=== PATIENT | male | born 1985 | race Caucasian/White ===

== ENCOUNTER 2025-02-21 07:05 | Emergency (ER) | payer SELFPAY ==
--- OUTSIDE RECORDS SUMMARY | 2025-02-21 07:16 | XMS REPORT | Continuity of Care Document ---
Author Name Unknown Address [address] [facility] [place] [address] [facility] Address [address] [facility] [place] [address] Care Team Providers Care [employer] Tutor Name Role Phone BRENNAN LINCOLN Primary Care Physician Unavailab KATE Little Attending Clinician Unavailable KATE MARSHALL Attending Clinician Unavailable Kate Marshall MD Attending Clinician [phone] CARLI BECKETT Attending Clinician Unavailable Carli Beckett MD Attending Clinician [phone] Guy Rascon MD Attending Clinician [phone] GUY RASCON Attending Clinician Unavailable LAB90 Attending Clinician Unavailable CHIP SOLOMON Attending Clinician Unavailable KATE MARSHALL Admitting Clinician Unavailable GUY RASCON Admitting Clinician Unavailable Payers Payer Name Policy Type Policy Number Effective Date Expirati on Date Source BCBS 2 [id number] 2022 00:00:00 Allergies, Adverse Reactions, Alerts Allergy Name Allergy Type Status Severity Reaction(s) Onset Date Inactive Date Treating Clinician Comments Source NO KNOWN ALLERGIE S Drug Class Active Univers [facility] Social History Social Habit Start Date Stop Date Quantity Comments Source Sexual orientation U [facility] History SDOH Alcohol Frequency Laurie Georgey bold - External History SDOH Alcohol Std Drinks Laurie Se ybold - External History SDOH Alcohol Binge Laurie Ureña - External Alcohol intake 2022-09-15 00:00:00 2022-09-15 00:00:00 Current drinker of alcohol (finding) Laurie Ureña - External Alcohol Comment 2022-09-15 00:00:00 2022-09-15 00:00:00 social Laurie Ureña - External Sex assigned at 1985 00:00:00 1985 00:00:00 [facility] Smoking Status Start Date Stop Date Source Tobacco smoking consumption unknown [facility] Never smoked tobacco Laurie Ureña - External Medications Ordered Medication Name Filled Medication Name Start Date Stop Date Current Medication? Ordering Clinician Indication Dosage Frequency Signature (SIG) Comments Components Source iopamidol (ISOVUE 370-500 mL) injection 90 mL 2023-07 05:30: 00 04-24 05:30 :00 No [id number] 90mL 90 mL, Intravenou s, ONCE, 1 dose, On Mon04/24/24 at 0030, Routine [facility] proMETHazin e (PHENERGAN) 25 mg in NS 50 mL IV piggyback (CNR) 2023-07 03:15: 00 04-24 03:44 :00 No 25mg 25 mg, IV Piggyback, at 200 mL/hr Administer over 15 Minutes, ONCE, 1 dose, On Mon04/23/24 at 2215, MICHELINE [facility] morpHINE (4 mg/mL) injection 4 mg 2023-07 03:15: 00 04-24 03:20 :00 No 4mg 4 mg, Slow IV Push, ONCE, 1 dose, On Mon04/23/24 at 2215, STAT [facility] ondansetron (ZOFRAN (PF)) injection 4 mg 11-10 22:00: 00 11-10 21:40 :00 No 4mg 4 mg, Slow IV Push, ONCE, 1 dose, On 11/11/23 at 1700, [facility] NaCl 0.9% (NS) bolus infusion 1,000 mL 2024-0 4-27 21:45: 00 11-11 00:24 :00 No 1000mL at 999 mL/hr, 1,000 mL, IV Piggyback, ONCE, 1 dose, On 11/11/23 at 1645, STAT [facility] Lactobac2-B ifido1-Stre p therm. 112.5 billion cell capsule 11-10 00:00: 00 Yes [id number] 1{capsu le} Take 1 capsule by mouth in the morning and 1 capsule in the evening. [facility] diphenoxyla te-atropine (LOMOTIL) 2.5-0.025 mg tablet 1 tablet 11-03 17:15: 00 11-03 17:00 :00 No 1{tbl} 1 tablet, Oral, ONCE NOW, 1 dose, On 11/04/23 at 1215, MICHELINE [facility] iohexol (OMNIPAQUE 350 BULK-100 mL) injection 100 mL 11-03 16:00: 00 11-03 15:48 :00 No [id number] 100mL 100 mL, Intravenou s, ONCE, 1 dose, On 11/04/23 at 1100, Routine [facility] diphenoxyla te-atropine 2.5-0.025 mg tablet 11-03 00:00: 00 Yes [id number] 1{tbl} Take 1 tablet by mouth every 6 (six) hours as needed (diarrhea) . [facility] proMETHazin e 25 mg tablet 11-03 00:00: 00 Yes [id number] 25mg Take 1 tablet by mouth every 6 (six) hours as needed for N/V unresponsi ve to Ondansetro n. [facility] ondansetron (ZOFRAN) 4 mg tablet 11-03 00:00: 00 Yes [id number] 4mg Take 1 tablet by mouth every 8 (eight) hours as needed for Nausea and Vomiting (N/V). [facility] metroNIDAZO LE 250 mg tablet 11-03 00:00: 00 11-11 04:59 :00 No [id number] 250mg Take 1 tablet by mouth every 8 (eight) hours for 7 days. [facility] ciprofloxac in HCl 500 mg tablet 11-03 00:00: 00 11-11 04:59 :00 No [id number] 500mg Take 1 tablet by mouth in the morning and 1 tablet in the evening. Do all this for 7 days. [facility] Sildenafil Citrate 50 MG oral Tablet 09-15 08:02: 46 Yes 50mg QD Take 50 mg by mouth daily as needed Laurie daniel Vital Signs Vital Name Observation Time Observation Value Comments S ourjaime Body temperature 2024-04-24 07:46:00 36.22 Karime [facility] Systolic blood pressure 2024-04-24 07:00:00 116 mm[Hg] [facility] Diastolic blood pressure 2024-04-24 07:00:00 78 mm[Hg] [facility] Respiratory rate 2024-04-24 07:00:00 18 /min [facility] Oxygen saturation in Arterial blood by Pulse oximetry 2024-04-24 06:00:00 94 /min [facility] Heart rate 2024-04-24 06:00:00 74 /min [facility] Body height 2024-04-24 02:47:00 175.3 cm [facility] Body weight 2024-04-24 02:47:00 129.275 kg [facility] BMI 2024-04-24 02:47:00 42.09 kg/m2 [facility] Systolic blood pressure 2023-11-11 23:30:00 120 mm[Hg] [facility] Diastolic blood pressure 2023-11-11 23:30:00 78 mm[Hg] [facility] Heart rate 2023-11-11 23:30:00 87 /[facility] Respiratory rate 2023-11-11 23:30:00 16 /min [facility] Oxygen saturation in Arterial blood by Pulse oximetry 2023-11-11 23:30:00 96 /min [facility] Body temperature 2023-11-11 20:46:00 37.11 Karime [facility] Body weight 2023-11-11 20:46:00 122.471 kg [facility] BMI 2023-11-11 20:46:00 39.87 kg/m2 [facility] Heart rate 2023-11-04 18:52:00 91 /min [facility] Respiratory rate 2023-11-04 18:52:00 18 /min [facility] Oxygen saturation in Arterial blood by Pulse oximetry 2023-11-04 18:52:00 98 /min [facility] Systolic blood pressure 2023-11-04 18:30:00 112 mm[Hg] [facility] Diastolic blood pressure 2023-11-04 18:30:00 58 mm[Hg] [facility] Body height 2023-11-04 12:42:51 175.3 cm [facility] Body weight 2023-11-04 12:42:51 127.007 kg [facility] BMI 2023-11-04 12:42:51 41.35 kg/m2 [facility] Body temperature 2023-11-04 12:40:00 37.56 Karime [facility] Diastolic blood pressure 2022-09-15 13:58:00 80 mm[Hg] Laurie Seybo ld - External Heart rate 2022-09-15 13:58:00 89 /min Kelse y Seybold - External Body temperature 2022-09-15 13:58:00 36.28 Karime Laurie Seybold - External Respiratory rate 2022-09-15 13:58:00 15 /min Laurie Seybold - External Body height 2022-09-15 13:58:00 175.3 cm Molly ey Seybold - External Body weight 2022-09-15 13:58:00 129.275 kg Molly ey Seybold - External BMI 2022-09-15 13:58:00 42.09 kg/m2 Molly ey Seybold - External Systolic blood pressure 2022-09-15 13:58:00 134 mm[Hg] Laurie Seybo ld - External Diastolic blood pressure 2022-09-15 13:58:00 80 mm[Hg] Laurie Seybo ld - External Heart rate 2022-09-15 13:58:00 89 /min Jose Luis Ureña - External Body temperature 2022-09-15 13:58:00 36.28 Karime Laurie Ureña - External Respiratory rate 2022-09-15 13:58:00 15 /min Laurie Ureña - External Body height 2022-09-15 13:58:00 175.3 cm Molly Ureña - External Body weight 2022-09-15 13:58:00 129.275 kg Molly Murguiaold - External BMI 2022-09-15 13:58:00 42.09 kg/m2 Molly elena Seybold - External Systolic blood pressure 2022-09-15 13:58:00 134 mm[Hg] Laurie Lester ld - External Procedures Procedure Date / Time Performed Performing Clinician Source CT ABDOMEN PELVIS W CONTRAST 2024-04-24 04:36:14 Kate Marshall [facility] LACTIC ACID WHOLE BLOOD 2024-04-24 03:54:00 Yudith Marshall [facility] LIPASE 2024-04-24 03:20:00 Kate Marshall [facility] COMP. METABOLIC PANEL ([id number]) 2024-04-24 03:20:00 Kate Marshall [facility] CBC WITH DIFF 2024-04-24 03:20:00 Kate Marshall [facility] PROTHROMBIN TIME / INR 2024-04-24 03:20:00 Marky Marshall [facility] URINALYSIS 2023-11-11 23:28:00 Carli Beckett [facility] LACTIC ACID WHOLE BLOOD 2023-11-11 21:38:00 Abiola Beckett [facility] COMP. METABOLIC PANEL ([id number]) 2023-11-11 21:36:00 Carli Beckett [facility] CBC WITH DIFF 2023-11-11 21:36:00 Carli Beckett [facility] CLOSTRIDIUM DIFFICILE TOXIN 2023-11-11 21:36:00 Carli Beckett [facility] EXTRA TUBE LT. BLUE 2023-11-11 21:36:00 Carli Beckett [facility] CT ABDOMEN PELVIS W CONTRAST 2023-11-04 15:50:00 Guy Rascon [facility] XR CHEST 2 VW 2023-11-04 15:01:00 Guy Rascon [facility] URINALYSIS 2023-11-04 13:31:00 Guy Rascon [facility] CLOSTRIDIUM DIFFICILE TOXIN 2023-11-04 13:31:00 Guy Rascon [facility] GIARDIA CRYPTOSPORIDIUM AG SCR 2023-11-04 13:31:00 Guy Rascon [facility] LIPASE 2023-11-04 13:17:00 Guy Rascon [facility] COMP. METABOLIC PANEL ([id number]) 2023-11-04 13:17:00 Guy Rascon [facility] CBC WITH DIFF 2023-11-04 13:17:00 Guy Rascon [facility] Encounters Start Date/Time End Date/Time Encounter Type Admission Type Attending [facility] Care Facility Care Department Encounter ID Source 2024-04-23 21:46:00 2024-04-24 02:50:00 Emergency X KATE MARSHALL WAKILI [facility] ERT [id number] [facility] 2024-04-23 21:46:00 2024-04-24 02:50:00 Emergency Kate Marshall S [facility] [id number] [facility] 2023-11-11 15:57:00 2023-11-11 19:47:00 Emergency X CARLI BECKETT [facility] ERT [id number] [facility] 2023-11-11 15:57:00 2023-11-11 19:47:00 Emergency Carli Beckett [facility] [id number] [id number] [id number] [facility] 2023-11-04 07:43:00 2023-11-04 14:31:00 Emergency Guy Rascon [facility] [id number] [id number] [id number] [id number] [facility] 2023-11-04 07:43:00 2023-11-04 14:31:00 Emergency X GUY RASCON [facility] ERT [id number] [facility] 2022-09-15 08:50:00 2022-09-15 08:50:00 Outpatient LAB90 LAURIE RODRIGUEZ [id number] Laurie arleen 2022-09-15 08:00:00 2022-09-15 08:00:00 Outpatient KORTNEYMaye CHIP LAURIE RODRIGUEZ [id number] Laurie Seghazalaelsie 2022-09-15 08:00:00 2022-09-15 08:00:00 Outpatient KORTNEYMaye CHIP RODRIGUEZ [id number] Laurie ghazalaelsie Results Test Description Test Time Test Comments Results Result Comments Source CT ABDOMEN PELVIS W CONTRAST 06:40:27 Ordering physician: KATE MARSHALL Indication: Nonlocalized abdominal pain, hernia COMPARISON: CT the abdomen and pelvis dated 11/04/2023 TECHNIQUE: Axial images of the abdomen and pelvis are performed followingadministration of intravenous contrast material. Images were reformatted inthe coronal and sagittal plane. CT scan was performed according to ALARA(as low as reasonably achievable) policy. FINDINGS: The lung bases are clear. The liver, gallbladder, spleen, adrenalglands and pancreas are within normal limits. The kidneys are normal inappearance bilaterally without hydronephrosis. No abdominal aortic aneurysmor dissection is appreciated. There is a midline ventral hernia in theabdomen containing only fat, but there is prominent stranding and a smallamount of fluid in the hernia sac (series 2, image 74). There is a smallumbilical hernia containing only fat at the time of the exam. There is no free fluid in the pelvis. There is no bowel obstruction,widespread diverticulosis or acute diverticulitis. The appendix isidentified and within normal limits. ?Bone windows through the abdomen andpelvis demonstrate no osseous destructive lesion. [facility] [id number] 03:59:36* Test Item Value Reference Range Interpretation Comme nts LACTIC ACID (test code = 6960869527) 1.11 mmol/L 0.50-2.20 Lab Interpretation (test cod e = 62554-4) Normal [facility] ([id number])2024-04-24 03:49:43* Test Item Value Reference Range Interpretation Comme nts NA (test code = 9089819496) 136 mmol/L 135-145 K (test code = 2797566722) 3.6 mmol/L 3.5-5.0 CL (test code = 6314488748) 102 mmol/L 98-108 CO2 TOTAL (test code = 0458030531) 28 mmol/L 23-31 AGAP (test code = 2544355769) 6 2-16 BUN (test code = 3873305402) 7 mg/dL 7-23 GLUCOSE (test code = 4819229392) 128 mg/dL 70-110 H CREATININE (test code = 2160-0) 0.90 mg/dL 0.60-1.25 TOTAL BILI (test code = 7651875551) 0.5 mg/dL 0.1-1.1 CALCIUM (test code = 5265740616) 9.4 mg/dL 8.6-10.6 T PROTEIN (test code = 8046173999) 7.6 g/dL 6.3-8.2 ALBUMIN (test code = 9684617099) 4.4 g/dL 3.5-5.0 ALK PHOS (test code = 5043762373) 66 U/L 34-122 ALTv (test code = 1742-6) 53 U/L 5-50 H AST(SGOT) (test code = 6209487615) 39 U/L 13-40 eGFR (test code = 82905-7) 111.4 mL/min/1.73m2 CKD-EPI eGFR (2020). Assuming creatinine has been stable day-to-day for at least three months, the eGFR indicates Category G1 (>= 90 mL/min/1.73 m2) Lab Interpretation (test code = 80112-8) Abnormal [facility] / [id number] 03:43:06* Test Item Value Reference Range Interpretation Comme nts PROTIME PATIENT (test code = 5964-2) 11.6 10.1-12.6 INR (test code = 6301-6) 1.0 Normal INR <1.1; Warfarin Therapeutic range 2.0 to 3.0 or 2.5 to 3.5, depending upon the indications. Lab Interpretation (test code = 59190-7) Normal [facility] with [id number] 03:38:23* Test Item Value Reference Range Interpretation Comme nts WBC (test code = 6690-2) 9.89 4.20-10.70 RBC (test code = 789-8) 5.58 4.26-5.52 H HGB (test code = 718-7) 15.5 g/dL 12.2-16.4 HCT (test code = 4544-3) 45.4 % 38.4-49.3 MCV (test code = 787-2) 81.4 fL 81.7-95.6 L MCH (test code = 785-6) 27.8 pg 26.1-32.7 MCHC (test code = 786-4) 34.1 g/dL 31.2-35.0 RDW-SD (test code = 32010-5) 38.5 fL 38.5-51.6 RDW-CV (test code = 788-0) 13.1 % 12.1-15.4 PLT (test code = 777-3) 318 150-328 MPV (test code = 07266-1) 10.2 fL 9.8-13.0 NRBC/100 WBC (test code = 1095268666) 0.0 0.0-10.0 NRBC x10^3 (test code = 8283602151) See_Comment [Automated messa ge] The system which generated this result transmitted reference range: 10*3/?L. The reference range was not used to interpret this result as normal/abnormal. GRAN MAT (NEUT) % (test code = 770-8) 70.5 % IMM GRAN % (test code = 2465124473) 0.80 % LYMPH % (test code = 736-9) 19.0 % MONO % (test code = 5905-5) 8.1 % EOS % (test code = 713-8) 1.1 % BASO % (test code = 706-2) 0.5 % GRAN MAT x10^3(ANC) (test code = 3530059527) 6.97 10*3/uL 1.99-6.95 H IMM GRAN x10^3 (test code = 3049130226) 0.08 10*3/uL 0.00-0.06 H LYMPH x10^3 (test code = 731-0) 1.88 10*3/uL 1.09-3.23 MONO x10^3 (test code = 742-7) 0.80 10*3/uL 0.36-1.02 EOS x10^3 (test code = 711-2) 0.11 10*3/uL 0.06-0.53 BASO x10^3 (test code = 704-7) 0.05 10*3/uL 0.01-0.09 Lab Interpretation (test code = 47827-4) Abnormal [facility] (97619)2023-11-11 22:03:01* Test Item Value Reference Range Interpretation Comme nts NA (test code = 5991746744) 133 mmol/L 135-145 L K (test code = 0573993584) 3.8 mmol/L 3.5-5.0 CL (test code = 8787727174) 92 mmol/L 98-108 L CO2 TOTAL (test code = 3836306079) 29 mmol/L 23-31 AGAP (test code = 4113496337) 12 2-16 BUN (test code = 2944215519) 18 mg/dL 7-23 GLUCOSE (test code = 4004594589) 100 mg/dL 70-110 CREATININE (test code = 2160-0) 1.20 mg/dL 0.60-1.25 TOTAL BILI (test code = 5961776554) 1.0 mg/dL 0.1-1.1 CALCIUM (test code = 4056172476) 9.8 mg/dL 8.6-10.6 T PROTEIN (test code = 3224581055) 8.4 g/dL 6.3-8.2 H ALBUMIN (test code = 9248673785) 4.6 g/dL 3.5-5.0 ALK PHOS (test code = 4719051521) 127 U/L 34-122 H ALTv (test code = 1742-6) 147 U/L 5-50 H AST(SGOT) (test code = 4200655443) 80 U/L 13-40 H eGFR (test code = 34842-0) 78.9 mL/min/1.73m2 CKD-EPI eGFR (2020). Assuming creatinine has been stable day-to-day for at least three months, the eGFR indicates Category G2 (60 - 89 mL/min/1.73 m2) Lab Interpretation (test code = 45723-4) Abnormal [facility] acute hospital with [id number] 21:54:02* Test Item Value Reference Range Interpretation Comme nts WBC (test code = 6690-2) 10.43 4.20-10.70 RBC (test code = 789-8) 6.24 4.26-5.52 H HGB (test code = 718-7) 17.1 g/dL 12.2-16.4 H HCT (test code = 4544-3) 50.1 % 38.4-49.3 H MCV (test code = 787-2) 80.3 fL 81.7-95.6 L MCH (test code = 785-6) 27.4 pg 26.1-32.7 MCHC (test code = 786-4) 34.1 g/dL 31.2-35.0 RDW-SD (test code = 27448-1) 36.7 fL 38.5-51.6 L RDW-CV (test code = 788-0) 12.8 % 12.1-15.4 PLT (test code = 777-3) 420 150-328 H MPV (test code = 40966-0) 9.5 fL 9.8-13.0 L NRBC/100 WBC (test code = 9963783059) 0.0 0.0-10.0 NRBC x10^3 (test code = 2154761883) See_Comment [Automated messa ge] The system which generated this result transmitted reference range: 10*3/?L. The reference range was not used to interpret this result as normal/abnormal. GRAN MAT (NEUT) % (test code = 770-8) 69.7 % IMM GRAN % (test code = 4077706884) 1.40 % LYMPH % (test code = 736-9) 15.4 % MONO % (test code = 5905-5) 12.5 % EOS % (test code = 713-8) 0.5 % BASO % (test code = 706-2) 0.5 % GRAN MAT x10^3(ANC) (test code = 9897552561) 7.27 10*3/uL 1.99-6.95 H IMM GRAN x10^3 (test code = 6544373798) 0.15 10*3/uL 0.00-0.06 H LYMPH x10^3 (test code = 731-0) 1.61 10*3/uL 1.09-3.23 MONO x10^3 (test code = 742-7) 1.30 10*3/uL 0.36-1.02 H EOS x10^3 (test code = 711-2) 0.05 10*3/uL 0.06-0.53 L BASO x10^3 (test code = 704-7) 0.05 10*3/uL 0.01-0.09 Lab Interpretation (test code = 79483-1) Abnormal [facility] Whole [id number] 21:52:31* Test Item Value Reference Range Interpretation Comme nts LACTIC ACID (test code = 1159586170) 2.12 mmol/L 0.50-2.20 Lab Interpretation (test cod e = 87825-2) [facility] W [id number] 16:03:27EXAM: CT ABDOMEN AND PELVIS WITH CONTRAST HISTORY: Abdominal abscess/infection suspected COMPARISON: None. TECHNIQUE: Contiguous axial imaging was performed following administrationof intravenous contrast. Coronal and sagittal reconstructions wereobtained. FINDINGS: Minimal subsegmental atelectasisin the lower lungs. The liver, spleen, gallbladder, pancreas, adrenal glands and kidneys arenormal.The bladder and prostate gland are unremarkable. The appendix is normal. There is fluid density seen throughout the colonand scattered fluid density within small bowel with couple of borderline toslightly prominent small bowel loops in the lower abdomen. Possible slightthickening of the colon wall at the proximal transverse colon. No bowelobstruction. Multiple minimally prominent and/or increasedin number mesenteric lymphnodes which may be reactive. Small fat-containing supraumbilical ventralhernia and small fat- containing umbilical hernia. No free fluid, free airor fluid collection. Tiny hiatal hernia. Osseous structures are intact.[facility] XR CHEST 2 [id number] 15:34:30EXAM: XR CHEST 2 VW COMPARISON: None HISTORY: 38 years old Male with cough, fever FINDINGS: Lungs: The lung volumes are normal. An azygos fissure is noted. Tracebibasilar subsegmental atelectasis asymmetric on the right. Possible smalldeveloping pneumonia at the right lower lung. No pleural abnormalities aredetected. Heart/Mediastinum: The cardiac silhouette appears normal. Bones and soft tissues: No focal osseous lesions. Mildly prominent air-filled small bowel and colon in the visualizedabdomen.[facility]burg[facility]OSTRIDIUM DIFFICILE [id number] 15:30:15* Test Item Value Reference Range Interpretation Comme nts C. difficile Toxin A/B (test code = 83651-1) Negative Negative Lab Interpretation (test cod e = 72374-4) Normal [facility] PANEL (44249)2023-11-04 14:01:33* Test Item Value Reference Range Interpretation Comme nts NA (test code = 9448340967) 133 mmol/L 135-145 L K (test code = 3860446102) 3.9 mmol/L 3.5-5.0 CL (test code = 4521181477) 98 mmol/L 98-108 CO2 TOTAL (test code = 2864701150) 25 mmol/L 23-31 AGAP (test code = 6242090491) 10 2-16 BUN (test code = 5410357003) 18 mg/dL 7-23 GLUCOSE (test code = 8891935548) 125 mg/dL 70-110 H CREATININE (test code = 2160-0) 1.40 mg/dL 0.60-1.25 H TOTAL BILI (test code = 9125191327) 0.7 mg/dL 0.1-1.1 CALCIUM (test code = 3924978479) 9.6 mg/dL 8.6-10.6 T PROTEIN (test code = 3206344687) 7.8 g/dL 6.3-8.2 ALBUMIN (test code = 5319672118) 4.2 g/dL 3.5-5.0 ALK PHOS (test code = 7388585931) 87 U/L 34-122 ALTv (test code = 1742-6) 37 U/L 5-50 AST(SGOT) (test code = 8458531332) 27 U/L 13-40 eGFR (test code = 55743-8) 65.6 mL/min/1.73m2 CKD-EPI eGFR (2020). Assuming creatinine has been stable day-to-day for at least three months, the eGFR indicates Category G2 (60 - 89 mL/min/1.73 m2) Lab Interpretation (test code = 62681-2) [facility]normal [facility]2024-[facility]-20 14:01:33* Test Item Value Reference Range Interpretation Comme nts LIPASE (test code = 5452195441) 522 U/L 0-220 H Lab Interpretation (test cod e = 11509-0) Abnormal [facility] WITH [id number] 14:00:17* Test Item Value Reference Range Interpretation Comme nts WBC (test code = 6690-2) 8.86 4.20-10.70 RBC (test code = 789-8) 5.95 4.26-5.52 H HGB (test code = 718-7) 16.8 g/dL 12.2-16.4 H HCT (test code = 4544-3) 47.4 % 38.4-49.3 MCV (test code = 787-2) 79.7 fL 81.7-95.6 L MCH (test code = 785-6) 28.2 pg 26.1-32.7 MCHC (test code = 786-4) 35.4 g/dL 31.2-35.0 H RDW-SD (test code = 68717-5) 38.4 fL 38.5-51.6 L RDW-CV (test code = 788-0) 13.2 % 12.1-15.4 PLT (test code = 777-3) 402 150-328 H MPV (test code = 22404-7) 9.8 fL 9.8-13.0 NRBC/100 WBC (test code = 1274541835) 0.0 0.0-10.0 NRBC x10^3 (test code = 1399218127) See_Comment [Automated message] The system which generated this result transmitted reference range: 10*3/?L. The reference range was not used to interpret this result as normal/abnormal. GRAN MAT (NEUT) % (test code = 770-8) 68.6 % IMM GRAN % (test code = 0007058559) 1.20 % LYMPH % (test code = 736-9) 13.8 % MONO % (test code = 5905-5) 15.3 % EOS % (test code = 713-8) 0.3 % BASO % (test code = 706-2) 0.8 % GRAN MAT x10^3(ANC) (test code = 0133512906) 6.07 10*3/uL 1.99-6.95 IMM GRAN x10^3 (test code = 3102759875) 0.11 10*3/uL 0.00-0.06 H LYMPH x10^3 (test code = 731-0) 1.22 10*3/uL 1.09-3.23 MONO x10^3 (test code = 742-7) 1.36 10*3/uL 0.36-1.02 H EOS x10^3 (test code = 711-2) 0.03 10*3/uL 0.06-0.53 L BASO x10^3 (test code = 704-7) 0.07 10*3/uL 0.01-0.09 BANDS (test code = 8549054220) MARKED INCREASED A DOHLE BODIES (test code = 7792-5) Present A TOXIC CHANGES (test code = 803-7) Present A Lab Interpretation (test code = 43293-3) Abnormal [facility] Notes Date/Time Note Provider Source 2024-04-24 02:47:29 Pt given printed and verbal discharge instructions regarding incarcerated ventral hernia, encouraged hydration, Pt verbalized understanding of instructions, pt awake alert oriented, resp reg unlabored, skin w/d, color appropriate for race, moves all ext well,pt encouraged to follow up with pcp Advised to seek medical attention for new/prolonged/worsening of symptoms No adverse reaction to meds given in ER noted upon discharge PIV d'cd, dressing to site, catheter in tact. Awake, alert oriented, resp reg unlabored, skin w/d, pt leaving ambulatory without assist, in no apparent distress, [facility] 2024-04-24 02:30:38 Pt consented to d/c and stated he will [facility]. Lexie Luz RN [facility] 2024-04-23 22:56:29 Report to david lorenzo Mackenzie Mckeon RN [facility] 2024-04-23 21:46:30 Pt presents to ED c/o hernia in the mid-abdomen León Adams RN [facility] 2023-11-11 19:46:45 Discharge instructions reviewed with patient. Prescription medication and follow up care discussed. All questions answered by RN. Patient verbalized understanding of all discharge material. Patient ambulatory to [facility]. Patient in possession of all belongings. RR even and unlabored, VSS, A&Ox4, NAD noted. Mary Mejia RN [facility] 2023-11-11 19:24:12 MD Beckett at bedside. [facility] 2023-11-11 19:00:00 Report received from Thais LORENZO. Previous treatment and plan of care discussed. Patient resting in bed. Denies needs at this time. Bed locked and in lowest position. Call light within reach. RR even and unlabored. VSS. A&Ox4. NAD noted. [facility] 2023-11-11 15:55:46 Patient arrives with C/O 7 day HX of N/V/D. Patient recently on ABT for DX of salmonella Patient without obvious distress.Aox4 Respirations even and unlabored. Skin color consistent with ethnicity. Yoan Barlow RN [facility] 2023-11-04 14:30:46 Pt teaching on f/u care and prescription meds, pt verbalized understanding Angelina Cruz RN [facility] 2023-11-04 09:00:00 Patient arrived to ed with c/o having N/V/D extreme diarrhea for 6 days. Pt reports being at a concert 6 days ago and became very ill shortly after. Pt denies any medical hx at this time. is at bedside T [facility] 2023-11-04 07:35:04 Tianna Montalvo is a 38 year old male ambulatory to triage with c/o abdominal pain accompanied by fever/diarrhea/nausea/fatigue x 1 week. Pt. Reports 10+ watery bm/day, decreased PO intake, feeling dehydrated. Pt. Aaox4, respirations even/unlabored, to room for eval. Tylenol/ibuprofen at 0600 [facility] 2023-11-04 07:30:00 [facility] Emergency Department Note Patient Name: Tianna Montalvo Date of : 1985 38 year old male Treatment Room: 109/109 Primary Care Physician: No primary care provider on file. Patient Escorted by: Family [5] Mode of Arrival: Personal means [1] EMS Treatment Prior to ED Arrival: [employer] treatment: None Travel and Exposure Screening: Symptoms Does patient have any of these symptoms?: (not recorded) Exposure Screening Has patient had contact with someone with a communicable disease in the last month?: (not recorded) Diseases exposed to:: (not recorded) Is Patient ?: (not recorded) Exposure Date: (not recorded) Chief Complaint: Chief Complaint Patient presents with Abdominal Pain Diarrhea History of Present Illness: Tianna Montalvo is a 38 year old male who presented to the Emergency Department for 7 days of watery diarrhea. Patient states that he went to a three-day [employer] concert with his significant other where they drank filtered community water. Patient reports that he ate [place] food separate to what his significant other ate 1-2 days prior to the start of his symptoms. He says after leaving the concert he developed chills, tachycardia (100s-110s), nausea, cough, and lethargy. Patient states he slept all day Monday, and then on Monday developed watery diarrhea. He describes the diarrhea as initially loose stools but becoming completely watery by the end of Monday. Patient also complains of epigastric pain. He reports losing 15 pounds in the last 5 days. He says on Monday he had streaks of bright red blood in his stool that resolved that day. He denied having any dark, black, or tarry stools. He went to his PCP on Monday who told him to take 1000 mg of acetaminophen and 800 mg of ibuprofen every eight hours. She also prescribed 8 mg of ondansetron twice a day and 5 mg of diphenoxylate. He says that the ondansetron has helped with the nausea but has had no relief from the diarrhea. He says that yesterday he ate some rice and applesauce and says that his diarrhea has slowed somewhat over the past 12 hours. Patient denies recent antibiotic use, vomiting, syncope, shortness of breath, or headache. History provided by: Patient Past Medical History/Immunizations: No past medical history on file. Tetanus received in last 5 years: Unknown Childhood immunizations: Up-to-date Allergies: No Known Allergies Past Social History: Substance & Sexual Activity No substance use or sexual activity history on file. Past Surgical History: No past surgical history on file. Review of Systems: Review of Systems Constitutional: Positive for activity change (decreased), appetite change (decreased), chills, diaphoresis, fatigue, fever and unexpected weight change (15 pound weight loss in 5 days). HENT: Negative for congestion, rhinorrhea and sore throat. Eyes: Negative for visual disturbance. Respiratory: Positive for cough. Negative for shortness of breath. Cardiovascular: Negative for chest pain. Gastrointestinal: Positive for abdominal pain, diarrhea and nausea. Negative for vomiting. Genitourinary: Negative for dysuria and hematuria. Musculoskeletal: Positive for myalgias. Skin: Negative for rash. Neurological: Positive for light-headedness. Negative for syncope, weakness, numbness and headaches. Physical Exam: ED Triage Vitals Weight 11/04/23 0742 127 kg (280 lb) Actual or estimated 11/04/23 0742 Estimated by patient/family report Height 11/04/23 0742 1.753 m (5' 9") BP 11/04/23 0736 (!) 141/88 Pulse 11/04/23 0736 102 Resp 11/04/23 0736 18 Temp 11/04/23 0740 37.6 ?C (99.6 ?F) Temp source 11/04/23 0736 Oral SpO2 11/04/23 0736 96 % Measured on 11/04/23 0736 Room air Physical Exam Vitals and nursing note reviewed. Constitutional: Appearance: Normal appearance. HENT: Head: Normocephalic and atraumatic. Mouth/Throat: Mouth: Mucous membranes are moist. Pharynx: No oropharyngeal exudate or posterior oropharyngeal erythema. Eyes: General: No scleral icterus. Extraocular Movements: Extraocular movements intact. Cardiovascular: Rate and Rhythm: Regular rhythm. Tachycardia present. Pulses: Normal pulses. Heart sounds: Normal heart sounds. No murmur heard. Pulmonary: Effort: Pulmonary effort is normal. Breath sounds: Normal breath sounds. Abdominal: General: Abdomen is flat. Bowel sounds are normal. There is no distension. Palpations: Abdomen is soft. There is no hepatomegaly or splenomegaly. Tenderness: There is generalized abdominal tenderness and tenderness in the epigastric area. There is no guarding or rebound. Negative signs include Ballesteros's sign. Hernia: A hernia is present. Hernia is present in the umbilical area (and periumbilical, neither are tender or hard). Musculoskeletal: General: Normal range of motion. Cervical back: Normal range of motion. Right lower leg: No edema. Left lower leg: No edema. Skin: General: Skin is warm and moist. Capillary Refill: Capillary refill takes less than 2 seconds. Neurological: General: No focal deficit present. Mental Status: He is alert and oriented to person, place, and time. Radiology: CT ABDOMEN PELVIS W CONTRAST Final Result EXAM: CT ABDOMEN AND PELVIS WITH CONTRAST HISTORY: Abdominal abscess/infection suspected COMPARISON: None. TECHNIQUE: Contiguous axial imaging was performed following administration of intravenous contrast. Coronal and sagittal reconstructions were obtained. FINDINGS: Minimal subsegmental atelectasis in the lower lungs. The liver, spleen, gallbladder, pancreas, adrenal glands and kidneys are normal. The bladder and prostate gland are unremarkable. The appendix is normal. There is fluid density seen throughout the colon and scattered fluid density within small bowel with couple of borderline to slightly prominent small bowel loops in the lower abdomen. Possible slight thickening of the colon wall at the proximal transverse colon. No bowel obstruction. Multiple minimally prominent and/or increased in number mesenteric lymph nodes which may be reactive. Small fat-containing supraumbilical ventral hernia and small fat-containing umbilical hernia. No free fluid, free air or fluid collection. Tiny hiatal hernia. Osseous structures are intact. IMPRESSION Findings as described above suspicious for enterocolitis/diarrheal disease. XR CHEST 2 VW Final Result EXAM: XR CHEST 2 VW COMPARISON: None HISTORY: 38 years old Male with cough, fever FINDINGS: Lungs: The lung volumes are normal. An azygos fissure is noted. Trace bibasilar subsegmental atelectasis asymmetric on the right. Possible small developing pneumonia at the right lower lung. No pleural abnormalities are detected. Heart/Mediastinum: The cardiac silhouette appears normal. Bones and soft tissues: No focal osseous lesions. Mildly prominent air-filled small bowel and colon in the visualized abdomen. IMPRESSION Trace bibasilar subsegmental atelectasis asymmetric on the right. Small developing pneumonia at the right lower lung not excluded. Preliminary Report Dictated by Resident: Praveen Neff I, Casandra Chavez MD., have reviewed this study and agree with the above report. Lab Results: Lab Results CBC WITH DIFF - Abnormal Result Value Ref Range WBC 8.86 4.20 - 10.70 10*3/?L RBC 5.95 (*) 4.26 - 5.52 10*6/?L HGB 16.8 (*) 12.2 - 16.4 g/dL HCT 47.4 38.4 - 49.3 % MCV 79.7 (*) 81.7 - 95.6 fL MCH 28.2 26.1 - 32.7 pg MCHC 35.4 (*) 31.2 - 35.0 g/dL RDW-SD 38.4 (*) 38.5 - 51.6 fL RDW-CV 13.2 12.1 - 15.4 % PLT 402 (*) 150 - 328 10*3/?L MPV 9.8 9.8 - 13.0 fL NRBC/100 WBC 0.0 0.0 - 10.0 /100 WBCs NRBC x10 3 <0.01 10*3/?L GRAN MAT (NEUT) % 68.6 % IMM GRAN % 1.20 % LYMPH % 13.8 % MONO % 15.3 % EOS % 0.3 % BASO % 0.8 % GRAN MAT x10 3 (ANC) 6.07 1.99 - 6.95 10*3/uL IMM GRAN x10 3 0.11 (*) 0.00 - 0.06 10*3/uL LYMPH x10 3 1.22 1.09 - 3.23 10*3/uL MONO x10 3 1.36 (*) 0.36 - 1.02 10*3/uL EOS x10 3 0.03 (*) 0.06 - 0.53 10*3/uL BASO x10 3 0.07 0.01 - 0.09 10*3/uL BANDS MARKED INCREASED (*) DOHLE BODIES Present (*) TOXIC CHANGES Present (*) COMP. METABOLIC PANEL (64922) - Abnormal NA 133 (*) 135 - 145 mmol/L K 3.9 3.5 - 5.0 mmol/L CL 98 98 - 108 mmol/L CO2 TOTAL 25 23 - 31 mmol/L AGAP 10 2 - 16 BUN 18 7 - 23 mg/dL GLUCOSE 125 (*) 70 - 110 mg/dL CREATININE 1.40 (*) 0.60 - 1.25 mg/dL TOTAL BILI 0.7 0.1 - 1.1 mg/dL CALCIUM 9.6 8.6 - 10.6 mg/dL T PROTEIN 7.8 6.3 - 8.2 g/dL ALBUMIN 4.2 3.5 - 5.0 g/dL ALK PHOS 87 34 - 122 U/L ALTv 37 5 - 50 U/L AST(SGOT) 27 13 - 40 U/L eGFR 65.6 mL/min/1.73m2 LIPASE - Abnormal LIPASE 522 (*) 0 - 220 U/L URINALYSIS - Abnormal APPEARANCE Clear Clear COLOR Yellow Yellow PH 5.0 4.8 - 8.0 SP GRAVITY 1.023 1.003 - 1.030 GLU U QUAL Normal Normal BLOOD Negative Negative KETONES 5 mg/dL (*) Negative PROTEIN 100 mg/dL (*) Negative UROBILIN Normal Normal BILIRUBIN Negative Negative NITRITE Negative Negative LEUK VISHNU Negative Negative RBC/HPF 3 0 - 3 HPF WBC/HPF 9 (*) 0 - 5 HPF BACTERIA Negative Negative MUCOUS Moderate (*) Negative LPF SQ EPITH <1 <=2 HPF GIARDIA CRYPTOSPORIDIUM AG SCR - Normal Giardia antigen screen Negative Negative Cryptosporidium Antigen Screen Negative Negative CLOSTRIDIOIDES (CLOSTRIDIUM) DIFFICILE TOXIN - Normal C. difficile Toxin A/B Negative Negative FECAL PATHOGENS BY PCR EKG: If EKG completed, see Procedure Note. Orders and Treatments: Orders Placed This Encounter Procedures CT ABDOMEN PELVIS W CONTRAST XR CHEST 2 VW CBC WITH DIFF COMP. METABOLIC PANEL (47862) LIPASE URINALYSIS GIARDIA CRYPTOSPORIDIUM AG SCR Fecal Pathogens by PCR CLOSTRIDIUM DIFFICILE TOXIN Orders Placed This Encounter Medications lactated ringers IV infusion 1,000 mL lactated ringers IV infusion 1,000 mL iohexol (OMNIPAQUE 350 BULK-100 mL) injection 100 mL diphenoxylate-atropine (LOMOTIL) 2.5-0.025 mg tablet 1 tablet metroNIDAZOLE 250 mg tablet diphenoxylate-atropine 2.5-0.025 mg tablet proMETHazine 25 mg tablet ondansetron (ZOFRAN) 4 mg tablet First Provider Eval: ED Events Date/Time Event User Comments 11/04/23 0744 Medical Screening Begins GUY RASCON MD -- 11/04/23 07 First Provider Evaluation GUY RASCON MD -- ED COURSE ED Course as of 11/04/23 1332 Sat Nov 04, [address] no abscess. Consistent with diarrheal illness. [GR] 1128 C. 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 [GR] 0940 CXR as well, is having nightly fevers, and given diaphoresis here, likely broke fever just prior to arrival (T 99.6 on entry) [GR] 0940 Cough since onset of illness. Foul smelling diarrhea. Normal bilirubin and AST/ALT/AlkPhos [GR] 0925 BANDS(!): MARKED INCREASED Will continue IV hydration here with 2nd liter fluid, given hemoconcentration. Noted bands and elevated lipase without symptoms of pancreatitis. CT a/p ordered. [GR] 0925 HGB(!): 16.8 [GR] 0911 BANDS(!): MARKED INCREASED [BJ] 0905 CREATININE(!): 1.40 [GR] 0905 NA(!): 133 [GR] 0905 LIPASE(!): 522 [GR] 0817 Concern for causes of watery diarrhea, fevers (taking round the clock high dose ibuprofen and tylenol, still 99.6 on arrival), inability to tolerate appropriate fluid intake, and 15# weight loss over this week of illness. [GR] ED Course User Index [BJ] Roger Liang [GR] Guy Rascon MD Diagnosis/Impression as of 11/04/23 1332 Diarrhea, unspecified type Abdominal pain, acute, generalized Dehydration Fever in adult Procedures: Procedures MDM: Medical Decision Making Tianna Montalvo is a 38 year old male who presents to the Emergency Department for prolonged watery diarrhea. Given patient's history of being at a festival drinking filtered community water and the prolonged state of diarrhea, parasite infection is of concern, vs viral enteriitis, colitis, bacterial infection. Slight cough since this started, took 2 covid tests that were negative. Work-up: Stool giardia and cryptosporidium Ag SCR, Stool PCR, CBC, CMP, lipase, UA C. Diff sent, negative. Treatment: 1000mL LR, second liter given CXR ordered due to cough. Radiology called possible atalectasis right base, on my view of the Xray there is no evidence of pneumonia or infiltrate. Legionella very unlikely, didn't stay in environment to suggest this. Was in [place], [place] near [facility] Problems Addressed: Abdominal pain, acute, generalized: acute illness or injury Dehydration: acute illness or injury with systemic symptoms Diarrhea, unspecified type: acute illness or injury with systemic symptoms Details: Treat metronidazole 250mg TID x 7 days Fever in adult: acute illness or injury Amount and/or Complexity of Data Reviewed Labs: ordered. Decision-making details documented in ED Course. Radiology: ordered. Decision-making details documented in ED Course. Risk Prescription drug management. Flowsheet Documentation: Scoring Tools: No data recorded Disposition/Condition: ED Disposition ED Disposition Disch - Home Condition Stable Comment -- Discharge Medications: Patient's Medications START taking these medications DIPHENOXYLATE-ATROPINE 2.5-0.025 MG TABLET Take 1 tablet by mouth every 6 (six) hours as needed (diarrhea). METRONIDAZOLE 250 MG TABLET Take 1 tablet by mouth every 8 (eight) hours for 7 days. ONDANSETRON (ZOFRAN) 4 MG TABLET Take 1 tablet by mouth every 8 (eight) hours as needed for Nausea and Vomiting (N/V). PROMETHAZINE 25 MG TABLET Take 1 tablet by mouth every 6 (six) hours as needed for N/V unresponsive to Ondansetron. CONTINUE taking these medications which have NOT CHANGED No medications on file START taking Modified Medications as Prescribed No medications on file STOP taking these medications No medications on file Follow-up: Electronically signed by: Guy Rascon MD 11/04/23 6384 T [facility]
[2025-02-21] MEDS ORDERED: ONDANSETRON 4 MG/2 ML VIAL ONE ×2 (07:37→16:27)
[2025-02-21] MEDS ORDERED: KETOROLAC 30 MG/ML INJ ONE (07:37)
[2025-02-21] MEDS ORDERED: FAMOTIDINE 20 MG/2 ML VIAL IV ONE (07:37)
[2025-02-21] MEDS ORDERED: NA CHLORIDE 0.9% 1,000 ML ONE (07:38)
[2025-02-21 07:52] LABS: Absolute Lymphocytes (CBC) 1.3 K/uL (0.7-4.9); Hematocrit 49.0 % (39.6-49.0); Hemoglobin 17.0 g/dL (13.6-17.9); MCH 28.5 pg (27.0-35.0); MCHC 34.7 g/dL (32.0-36.0); MCV 82.3 fL (80-100); MPV 8.8 fL (7.6-11.3); Nucleated RBC Absolute Count 0.0 (0-0); Nucleated Red Blood Cells % 0.1 % (0-0); RBC Red Blood Cell Count 5.95 M/uL (4.33-5.43); White Blood Count 12.40 thou/uL (4.3-10.9)
[2025-02-21] MEDS ORDERED: MORPHINE 4 MG/ML SYR ONE ×2 (08:29→11:01)
[2025-02-21 08:31] LABS: ALT/SGPT 596.0 U/L (16-61); AST/SGOT 351.0 U/L (15-37); Albumin 4.0 g/dL (3.4-5.0); Albumin/Globulin Ratio 1.0 (1.1-1.8); Alkaline Phosphatase 146.0 U/L (45-117); Anion Gap 10.9 mEq/L (5.0-15.0); BUN Blood Urea Nitrogen 14.0 mg/dL (7-18); Globulin 4.0 g/dL (2.3-3.5); Glucose Level 129.0 mg/dL (74-106); Lipase 4055.0 U/L (13-75); Potassium 3.9 mEq/L (3.5-5.1)
--- NOTE | 2025-02-21 08:44 | RAD REPORT ---
EXAMINATION: Abdomen Pelvis W Contrast CLINICAL INDICATION: Male, 39 years old.RUQ RLQ pain TECHNIQUE: CT abdomen and pelvis was performed, after the administration of IV contrast, as per [facility] protocol. Axial, sagittal and coronal reconstructions were obtained. One or more of the following dose reduction techniques were used: Automated exposure control, adjustment of the mA and/o r kV according to patient size, and/or iterative reconstruction. Unless otherwise specified, incidental findings do not require dedicated imaging follow-up. [id number]. COMPARISON: No prior exams FINDINGS: LOWER CHEST: No acute process identified.No significant pericardial effusion. UPPER GI: No significant abnormality. LIVER: Hepatic steatosis, but otherwise unremarkable. GALLBLADDER/BILE DUCTS: Distended gallbladder. No pericholecystic inflammatory changes.?Possible 2 mm stone at the distal common bile duct. PANCREAS: Mild stranding around the head of the pancreas. SPLEEN: Unremarkable. ADRENALS: No adrenal masses. KIDNEYS AND URETERS: No hydronephrosis.No suspicious renal mass. ABDOMINAL AORTA AND OTHER VESSELS: Normal caliber aorta and IVC. PERITONEUM: No abnormal free fluid. No free air. LYMPH NODES: No pathologic lymphadenopathy. ABDOMINAL WALL: Fat-containing ventral hernia with narrow neck and stranding both within the fat in t he hernia and in the subjacent omental fat. Fat-containing umbilical hernia. SMALL BOWEL/COLON: Small bowel has normal course and caliber. No colonic wall thickening or pericolon ic inflammatory changes. URINARY BLADDER: Underdistended but grossly unremarkable. REPRODUCTIVE ORGANS: No pathologic process. MUSCULOSKELETAL: No acute or suspicious osseous abnormality. ADDITIONAL FINDINGS: None. IMPRESSION: Mild peripancreatic stranding could reflect acute pancreatitis. Possible stone in the distal common b ile duct. Consider MRCP and correlation with lipase. Fat-containing narrow neck ventral hernia with stranding within the herniated fat and in the underlyi ng omentum. Cannot exclude incarceration/angulation.
[2025-02-21] MEDS ORDERED: NA CHLORIDE 0.9% 100 ML ONE (08:57)
[2025-02-21] MEDS ORDERED: PIPERACIL/TAZO 4.5 GM VIAL IV ONE (08:57)
--- NOTE | 2025-02-21 09:17 | ER ---
Nurse's Notes [facility] Name: Bruno Wilkins Age: 39 yrs Sex: Male : 1985 Arrival Date: 02/21/2025 Time: 07:05 Bed 14 Private MD: Diagnosis: Calculus of gallbladder and bile duct without cholecystitis with obstruction;Biliary acute pancreatitis Presentation: 02/21 07:32 Chief complaint: Epigastric pain that radiates to back x 2 days. Last BM 2 days ago. hb Coronavirus screen: At this time, the client does not indicate any symptoms associated with coronavirus-19. Ebola Screen: No symptoms or risks identified at this time. Initial Sepsis Screen: Does the patient meet any 2 criteria? No. Patient's initial sepsis screen is negative. Does the patient have a suspected source of infection? No. Patient's initial sepsis screen is negative. Risk Assessment: Do you want to hurt yourself or someone else? Patient reports no desire to harm self or others. Onset of symptoms was February 19, 2025. 07:32 Method Of Arrival: Ambulatory hb 07:32 Acuity: LAURENT 3 hb Historical: - Allergies: 07:35 No Known Allergies; hb - Home Meds: 07:35 None [Active]; hb - PMHx: 07:35 "blood clotting disorder"; hb - PSHx: 07:35 None; hb - Immunization history:: Adult Immunizations up to date. - Infectious Disease History:: Denies. - Social history:: Smoking status: Reported history of juuling and/or vaping. Screenin:58 [facility] ED Fall Risk Assessment (Adult) History of falling in the last 3 months, ar8 including since admission No falls in past 3 months (0 pts) Confusion or Disorientation No (0 pts) Intoxicated or Sedated No (0 pts) Impaired Gait No (0 pts) Mobility Assist Device Used No (0 pt) Altered Elimination No (0 pt) Score/Fall Risk Level 0 - 2 = Low Risk Oriented to surroundings, Maintained a safe environment. Abuse screen: Denies threats or abuse. Denies injuries from another. Nutritional screening: No deficits noted. Tuberculosis screening: No symptoms or risk factors identified. Assessment: 07:58 General: Appears uncomfortable, Behavior is cooperative, restless. Pain: Complains of ar8 pain in epigastric area Pain currently is 8 out of 10 on a pain scale. Quality of pain is described as stabbing. Neuro: No deficits noted. Level of Consciousness is awake, alert, obeys commands, Oriented to person, place, time, situation. Cardiovascular: No deficits noted. Respiratory: No deficits noted. Airway is patent Respiratory effort is even, unlabored, Respiratory pattern is regular, symmetrical. GI: Abdomen is obese, Abdomen is tender to palpation in epigastric area Reports upper abdominal pain, constipation, epigastric pain, nausea. 12:15 General: Appears in no apparent distress. Behavior is calm, cooperative, appropriate rg5 for age. Pain: Complains of pain in back and abdomen Pain currently is 6 out of 10 on a pain scale. Quality of pain is described as aching. Neuro: Level of Consciousness is awake, alert, obeys commands, Oriented to person, place, time, situation. Cardiovascular: Patient's skin is warm and dry. Respiratory: Airway is patent Trachea midline Respiratory effort is even, unlabored, Respiratory pattern is regular, symmetrical. GI: Abdomen is round Reports upper abdominal pain, constipation. : No signs and/or symptoms were reported regarding the genitourinary system. EENT: No signs and/or symptoms were reported regarding the EENT system. Derm: Skin is intact, Skin is dry, Skin is normal, Skin temperature is warm. Musculoskeletal: Circulation, motion, and sensation intact. Range of motion: intact in all extremities. 13:00 Reassessment: No changes from previously documented assessment. Patient and/or family rg5 updated on plan of care and expected duration. Pain level reassessed. Patient is alert, oriented x 3, equal unlabored respirations, skin warm/dry/pink. 14:00 Reassessment: Patient and/or family updated on plan of care and expected duration. Pain rg5 level reassessed. Patient is alert, oriented x 3, equal unlabored respirations, skin warm/dry/pink. 15:05 Reassessment: Patient and/or family updated on plan of care and expected duration. Pain rg5 level reassessed. Patient is alert, oriented x 3, equal unlabored respirations, skin warm/dry/pink. 16:41 Reassessment: Patient and/or family updated on plan of care and expected duration. Pain rg5 level reassessed. Patient is alert, oriented x 3, equal unlabored respirations, skin warm/dry/pink. Patient states feeling better. 16:41 GI: rg5 Vital Signs: 07:32 BP 151 / 91; Pulse 84; Resp 16; Temp 98.5; Pulse Ox 98% on R/A; Weight 122.47 kg; hb Height 5 ft. 9 in. ; Pain 8/10; 08:43 BP 139 / 58; Pulse 69; Resp 20 S; Pulse Ox 98% on R/A; ar8 09:17 Pain 5/10; ar8 09:30 BP 128 / 69; Pulse 70; Resp 17 S; Pulse Ox 95% on R/A; ar8 12:31 BP 138 / 77; Pulse 63; Resp 18; Temp 98.3; Pulse Ox 97% ; Pain 6/10; rg5 13:00 BP 131 / 65; Pulse 65; Resp 17; Pulse Ox 94% on R/A; Pain 6/10; rg5 14:00 BP 127 / 66; Pulse 70; Resp 18; Pulse Ox 95% on R/A; Pain 6/10; rg5 15:02 BP 132 / 76; Pulse 80; Resp 18; Pulse Ox 94% on R/A; Pain 4/10; rg5 07:32 Body Mass Index 39.87 (122.47 kg, 175.26 cm) hb 07:32 Pain Scale: Adult hb 09:17 Pain Scale: Adult ar8 12:31 Pain Scale: Adult rg5 13:00 Pain Scale: Adult rg5 14:00 Pain Scale: Adult rg5 15:02 Pain Scale: Adult rg5 ED Course: 07:06 Patient arrived in ED. mr 07:20 Reuben De La Rosa MD is Attending Physician. jr11 07:34 Triage completed. hb 07:35 Arm band placed on. hb 07:41 Elliot Ames, BJ is Primary Nurse. ar8 07:45 Inserted saline lock: 20 gauge in right forearm, using aseptic technique. Blood ar8 collected. Flushed with 10 mL NS. 07:58 Bed in low position. Call light in reach. Side rails up X2. Provided Education on: plan ar8 of care, diagnostics, and estimated wait time. . 07:58 No provider procedures requiring assistance completed. ar8 08:30 CT Abd/Pelvis - IV Contrast Only In Process Unspecified. EDMS 09:12 Transfer initiated with [facility]. em1 12:15 Patient transferred, IV remains in place. intact, No redness/swelling at site. rg5 Administered Medications: 07:48 Drug: Ondansetron IVP 4 mg IVP once; over 2 minutes Route: IVP; Site: right forearm; ar8 08:43 Follow up: Response: No adverse reaction; Nausea is decreased ar8 07:48 Drug: NS 0.9% IV 1000 ml IV at 1 bolus Per protocol; to be given as a bolus over 60 ar8 minutes Route: IV; Rate: 1 bolus; Site: right forearm; 11:46 Follow up: IV Status: Completed infusion; IV Intake: 1000ml rg5 07:50 Drug: TORadol - Ketorolac IVP 15 mg IVP once Route: IVP; Site: right forearm; ar8 08:43 Follow up: Response: No adverse reaction; Pain is unchanged, physician notified ar8 07:52 Drug: Famotidine IVP 20 mg IVP once; dilute with 10 mL 0.9% NaCl; give over 2 minutes ar8 Route: IVP; Site: right forearm; 08:43 Follow up: Response: No adverse reaction ar8 08:36 Drug: morphine IVP or IV 4 mg IVP once over 4 mins Route: IVP; Infused Over: 4 mins; ar8 Site: right forearm; 09:17 Follow up: Pain 5/10 Adult; Response: No adverse reaction; Pain is decreased ar8 09:17 Drug: Piperacillin-Tazobactam IVPB 4.5 grams IVPB once over 60 mins; (mix in 100 mL NS) ar8 Route: IVPB; Infused Over: 60 mins; Site: right forearm; 11:46 Follow up: IV Status: Completed infusion; IV Intake: 100ml rg5 11:08 Drug: morphine IVP or IV 4 mg IVP once over 4 mins Route: IVP; Infused Over: 4 mins; ar8 Site: right forearm; 11:48 Follow up: Response: No adverse reaction; Pain is decreased rg5 12:48 Drug: HYDROmorphone IVP 0.5 mg IVP once Route: IVP; Site: right forearm; rg5 13:30 Follow up: Response: No adverse reaction; Pain is decreased rg5 16:25 Drug: Ondansetron IVP 4 mg IVP once; over 2 minutes Route: IVP; Site: right forearm; rg5 16:40 Follow up: Response: No adverse reaction rg5 16:25 Drug: HYDROmorphone IVP 0.5 mg IVP once Route: IVP; Site: right forearm; rg5 16:40 Follow up: Response: No adverse reaction; Pain is decreased rg5 Medication: 07:58 VIS not applicable for this client. ar8 Intake: 11:46 IV: 1000ml; Total: 1000ml. rg5 11:46 IV: 100ml; Total: 1100ml. rg5 Outcome: 09:16 Discharge ordered by MD. faulkner 09:16 ER care complete, transfer ordered by . [facility] 16:41 Transferred by ground EMS to [facility] 16:41 Condition: stable 16:41 Instructed on the need for transfer, 16:43 Patient left the ED. rg5 Signatures: Dispatcher [employer] EDMS Radha Nuñez, Jose Reg mr Eren Turner em1 Shikha Olvera RN RN hb Rosillo, Jose, MD MD jr11 Ricardo Rosa RN RN rg5 Elliot Ames RN RN ar8 Corrections: (The following items were deleted from the chart) 07:56 07:48 NS 0.9% IV 1000 ml IV at 1 bolus in right antecubital ar8 ar8 07:56 07:52 Famotidine IVP 20 mg IVP in right antecubital ar8 ar8 07:57 07:48 Ondansetron IVP 4 mg IVP in right antecubital ar8 ar8 07:57 07:50 TORadol - Ketorolac IVP 15 mg IVP in right antecubital ar8 ar8 08:00 07:45 Inserted saline lock: 20 gauge in right antecubital area, using aseptic ar8 technique. Blood collected. Flushed with 10 mL NS ar8
--- NOTE | 2025-02-21 09:17 | EDPHYS ---
Physician Documentation [facility] Name: Bruno Wilkins Age: 39 yrs Sex: Male : 1985 Arrival Date: 02/21/2025 Time: 07:05 Bed 14 Private MD: ED Physician Reuben De La Rosa HPI: 02/21 07:47 Chief Complaint: Epigastric pain. History of Present Illness: The patient presents with jr11 epigastric pain which has been exacerbated by trapped upper inlet gas, as noted on an x-ray. The patient reported that the gas has worsened their hernia, making it tender and inflamed. They have not yet picked up the prescribed medications from the pharmacy, which include Milk of Magnesia, Zofran for nausea, and another unspecified medication for acid. The patient experienced nausea since yesterday, without vomiting, and has not had a bowel movement in the past two days. They have been unable to pass gas. The pain is notably epigastric and was described as severe yesterday but has improved slightly today. The patient associated consuming chicken nuggets last night with worsening their symptoms. They have a history of experiencing less severe discomfort after consuming fried or greasy foods and generally feel better with a healthier diet. The patient suspects gallbladder involvement due to similar symptoms experienced by a family member. They work long hours and consume caffeine and nicotine to stay awake. The patient has no history of abdominal surgeries. Review of Systems: - Positive for nausea since yesterday - No vomiting - No bowel movements in the last two days - Unable to pass gas ROS otherwise negative . Historical: - Allergies: 07:35 No Known Allergies; hb - Home Meds: 07:35 None [Active]; hb - PMHx: 07:35 "blood clotting disorder"; hb - PSHx: 07:35 None; hb - Immunization history:: Adult Immunizations up to date. - Infectious Disease History:: Denies. - Social history:: Smoking status: Reported history of juuling and/or vaping. Exam: 07:47 Constitutional: This is a well developed, well nourished patient who is awake, alert, jr11 and in no acute distress. Head/Face: Normocephalic, atraumatic. Eyes: Extra-ocular motions intact. Lids and lashes normal. Conjunctiva and sclera are non-icteric and not injected. Cornea within normal limits. Periorbital areas with no swelling, redness, or edema. ENT: Nares patent. No nasal discharge, no septal abnormalities noted. Oropharynx with no redness, swelling, or masses, exudates, or evidence of obstruction, uvula midline. Mucous membranes moist. Chest/axilla: Normal chest wall appearance and motion. Nontender with no deformity. No lesions are appreciated. Abdomen/GI: diffuse TTP, no peritonitis Skin: Warm, dry with normal turgor. Normal color with no rashes, no lesions, and no evidence of cellulitis. MS/ Extremity: Pulses equal, no cyanosis. Neurovascular intact. Full, normal range of motion. Vital Signs: 07:32 BP 151 / 91; Pulse 84; Resp 16; Temp 98.5; Pulse Ox 98% on R/A; Weight 122.47 kg; hb Height 5 ft. 9 in. ; Pain 8/10; 08:43 BP 139 / 58; Pulse 69; Resp 20 S; Pulse Ox 98% on R/A; ar8 09:17 Pain 5/10; ar8 09:30 BP 128 / 69; Pulse 70; Resp 17 S; Pulse Ox 95% on R/A; ar8 12:31 BP 138 / 77; Pulse 63; Resp 18; Temp 98.3; Pulse Ox 97% ; Pain 6/10; rg5 13:00 BP 131 / 65; Pulse 65; Resp 17; Pulse Ox 94% on R/A; Pain 6/10; rg5 14:00 BP 127 / 66; Pulse 70; Resp 18; Pulse Ox 95% on R/A; Pain 6/10; rg5 15:02 BP 132 / 76; Pulse 80; Resp 18; Pulse Ox 94% on R/A; Pain 4/10; rg5 07:32 Body Mass Index 39.87 (122.47 kg, 175.26 cm) hb 07:32 Pain Scale: Adult hb 09:17 Pain Scale: Adult ar8 12:31 Pain Scale: Adult rg5 13:00 Pain Scale: Adult rg5 14:00 Pain Scale: Adult rg5 15:02 Pain Scale: Adult rg5 MDM: 07:31 Medical Screening Exam initiated jr11 07:47 Differential diagnosis: Medical Decision Makin. Gallbladder disease: Given the jr11 symptoms of epigastric pain, nausea, and dietary triggers, gallbladder disease is a strong possibility. A CT scan is planned to rule out severe complications. 2. Trapped gas: The x-ray indicating trapped gas could contribute to the patient's symptoms but is less likely to be the sole cause of their severe pain. 3. Pancreatitis: Considered due to the location of pain and patient's caffeine and nicotine use, though less likely without elevated enzymes or significant alcohol use. 4. Peptic ulcer disease: Possible due to epigastric pain and dietary triggers, though less likely without evidence of gastrointestinal bleeding or H.pylori infection. Plan: - Obtain a CT scan to evaluate the gallbladder and rule out other potential causes of abdominal pain. - Prescribe medications to manage symptoms, including those already sent to the pharmacy. - Schedule an ultrasound of the gallbladder if the CT scan does not indicate surgical intervention is necessary. - Advise the patient to avoid fatty or greasy foods and to maintain a healthier diet to alleviate symptoms. - Follow up with gastroenterology for further evaluation and management if necessary. 09:14 ED course: CT to my read concern for pancreatitis, will transfer for concern [facility] choledocholithiasis . 10:21 ED course: Dany, hospitalist accepted, [facility] for [facility]. [facility] 02/21 07:33 Order name: CBC with Diff; Complete Time: 08:44 02/21 07:33 Order name: CMP; Complete Time: 08:44 02/21 07:33 Order name: Lipase; Complete Time: 08:44 02/21 07:33 Order name: CT Abd/Pelvis - IV Contrast Only; Complete Time: 08:45 02/21 07:33 Order name: IV Saline Lock; Complete Time: 08:01 02/21 07:33 Order name: Labs collected and sent; Complete Time: 08:02/21 10:23 Order name: NPO; Complete Time: 10:58 Administered Medications: 07:48 Drug: Ondansetron IVP 4 mg IVP once; over 2 minutes Route: IVP; Site: right forearm; ar8 08:43 Follow up: Response: No adverse reaction; Nausea is decreased ar8 07:48 Drug: NS 0.9% IV 1000 ml IV at 1 bolus Per protocol; to be given as a bolus over 60 ar8 minutes Route: IV; Rate: 1 bolus; Site: right forearm; 11:46 Follow up: IV Status: Completed infusion; IV Intake: 1000ml rg5 07:50 Drug: TORadol - Ketorolac IVP 15 mg IVP once Route: IVP; Site: right forearm; ar8 08:43 Follow up: Response: No adverse reaction; Pain is unchanged, physician notified ar8 07:52 Drug: Famotidine IVP 20 mg IVP once; dilute with 10 mL 0.9% NaCl; give over 2 minutes ar8 Route: IVP; Site: right forearm; 08:43 Follow up: Response: No adverse reaction ar8 08:36 Drug: morphine IVP or IV 4 mg IVP once over 4 mins Route: IVP; Infused Over: 4 mins; ar8 Site: right forearm; 09:17 Follow up: Pain 5/10 Adult; Response: No adverse reaction; Pain is decreased ar8 09:17 Drug: Piperacillin-Tazobactam IVPB 4.5 grams IVPB once over 60 mins; (mix in 100 mL NS) ar8 Route: IVPB; Infused Over: 60 mins; Site: right forearm; 11:46 Follow up: IV Status: Completed infusion; IV Intake: 100ml rg5 11:08 Drug: morphine IVP or IV 4 mg IVP once over 4 mins Route: IVP; Infused Over: 4 mins; ar8 Site: right forearm; 11:48 Follow up: Response: No adverse reaction; Pain is decreased rg5 12:48 Drug: HYDROmorphone IVP 0.5 mg IVP once Route: IVP; Site: right forearm; rg5 13:30 Follow up: Response: No adverse reaction; Pain is decreased rg5 16:25 Drug: Ondansetron IVP 4 mg IVP once; over 2 minutes Route: IVP; Site: right forearm; rg5 16:40 Follow up: Response: No adverse reaction rg5 16:25 Drug: HYDROmorphone IVP 0.5 mg IVP once Route: IVP; Site: right forearm; rg5 16:40 Follow up: Response: No adverse reaction; Pain is decreased rg5 Disposition Summary: 02/21/25 09:16 Transfer Ordered Notes: Transfer Location: Other Acute Care Facility jr11 Reason: Higher level of care jr11 Condition: Stable(02/21/25 09:16) jr11 Problem: new jr11 Symptoms: are unchanged jr11 Accepting Physician: GI(02/21/25 16:43) rg5 Diagnosis - Calculus of gallbladder and bile duct without cholecystitis with jr11 obstruction(02/21/25 09:16) - Biliary acute pancreatitis(02/21/25 09:16) jr11 Forms: - Medication Reconciliation Form jr11 - SBAR form jr11 Signatures: Dispatcher [employer] EDMS Shikha Olvera RN RN hb Rosillo, Jose, MD MD jr11 Ricardo Rosa RN RN rg5 Elliot Ames RN RN ar8 Corrections: (The following items were deleted from the chart) 09:16 09:16 Home jr11 jr11 09:16 09:16 Stable 11 jr11 09:16 09:16 Calculus of gallbladder and bile duct without cholecystitis with obstruction jr11 jr11 09:16 09:16 Biliary acute pancreatitis jr11 jr11 10:26 10:21 ED course: Dany, hospitalist. jr11 jr11 16:43 09:16 GI jr11 rg5
[2025-02-21] MEDS ORDERED: HYDROMORPHONE HCL 0.5 MG/0.5 ML INJ ONE ×2 (12:48→16:27)
[2025-02-21 17:18] VITALS: TEMP 98.3
[2025-02-21 17:22] VITALS: BP 132/76; O2SAT 94
== END 2025-02-21 16:43 ==
LOC: ER 07:05
DX: K80.71 Calculus of gallbladder and bile duct without cholecystitis with obstruction (principal); K85.10 Biliary acute pancreatitis without necrosis or infection
CPT/HCPCS: 36415; 74177; 80053; 83690; 85025; 96361; 96365; 96366; 96375; 99285; J1171; J2405; J7030; Q9967